=== PATIENT | male | born 1955 | race Hispanic/Latino ===

== ENCOUNTER 2021-09-06 06:29 | Day surgery (SDC) | payer MEDICARE ==
[2021-09-03 09:56] LABS: BASOPHILS % (AUTO) 1.2 % (0.0-5.0); HEMATOCRIT 42.9 % (42-54); LYMPHOCYTES % (AUTO) 17.9 % (21.0-51.0); MEAN CORPUSCULAR HEMOGLOBIN 28.5 pg (27.0-33.0); MEAN CORPUSCULAR HGB CONC 32.2 g/dL (32.0-36.0); MEAN CORPUSCULAR VOLUME 88.6 fL (79-99); MONOCYTES % (AUTO) 10.8 % (3.0-13.0); NEUTROPHILS % (AUTO) 67.5 % (40.0-77.0); PLATELET COUNT (AUTO) 322 K/uL (130-400); RED BLOOD CELL COUNT(AUTO) 4.84 MIL/uL (4.50-6.20); RED CELL DISTRIBUTION WIDTH 12.7 % (11.0-15.5); WHITE BLOOD COUNT (AUTO) 8.4 K/uL (4.8-10.8)
[2021-09-03 10:06] LABS: CREATININE 1.2 mg/dL (0.5-1.5)
[2021-09-03] MEDS: CEFAZOLIN SODIUM 2 GM VIAL IV SCH (14:00)
[2021-09-06] VITALS (12 sets, daily range): BP systolic 120–156; BP diastolic 69–94
[~2021-09-06] VITALS: Ht 167.6 cm; Wt 86.6 kg
[2021-09-06] MEDS ORDERED: LIDOCAINE HCL 1% 20 ML VIAL ONE (07:03)
[2021-09-06] MEDS ORDERED: BUPIVACAINE/PF 0.25% 10ML VIAL IJ ONE (07:03)
[2021-09-06] MEDS ORDERED: BUPIVACAINE/PF 0.5% 30ML VIAL ONE (07:03)
[2021-09-06] MEDS ORDERED: CEFAZOLIN SODIUM 1 GM VIAL ONE (07:18)
[2021-09-06] MEDS ORDERED: LACTATED RINGERS 1000ML 1,000 ML IV ONE (07:19)
[2021-09-06] MEDS ORDERED: FENTANYL CITRATE PF 50 MCG/1 ML 5ML AMP IV ONE (07:25)
[2021-09-06] MEDS ORDERED: LIDOCAINE PF 100MG/5ML (2%) SYRINGE 5ML ONE (07:25)
[2021-09-06] MEDS ORDERED: PROPOFOL 10 MG/ML 20ML VIAL IV ONE (07:25)
[2021-09-06] MEDS ORDERED: SUCCINYLCHOLINE 200MG/10ML SYR ONE (08:20)
[2021-09-06] MEDS: CEFAZOLIN SODIUM 2 GM VIAL IV SCH (08:39)
[2021-09-06] MEDS ORDERED: GLYCOPYRROLATE 1 MG/5 ML SYRINGE ONE (09:07)
[2021-09-06] MEDS ORDERED: ONDANSETRON 4MG INJ ONE (09:43)
[2021-09-06] MEDS ORDERED: KETOROLAC 30MG VIAL (30MG/ML) ONE (09:43)
== END 2021-09-06 11:35 | disposition home or self-care (01) ==
LOC: DAH 06:29
PROVIDERS: ATTEND Student in an Organized Health Care Education/Training Program
DX: R22.1 Localized swelling, mass and lump, neck (principal); D17.0 Benign lipomatous neoplasm of skin and subcutaneous tissue of head, face and neck; Z98.890 Other specified postprocedural states; Z87.891 Personal history of nicotine dependence; Z72.89 Other problems related to lifestyle; Z20.822 Contact with and (suspected) exposure to COVID-19
CPT/HCPCS: 21552; 36415; 80048; 85025; 87635; 88304; 93005; A4215; A4221; A4222; A4223; A4600; A4663; A4930 ×2; A6260; C9803; G0168; J0330; J0690; J1885; J2001; J2405; J2704; J3010; J3490 ×2; J7120 ×2